=== PATIENT | female | born 1940 | race Caucasian/White ===

== ENCOUNTER 2021-07-04 11:55 | Emergency (ER) | payer MEDICARE, OTHER ==
[~2021-07-04] VITALS: Ht 160 cm; Wt 55.9 kg
[2021-07-04] MEDS ORDERED: METO25TA91 PO (11:58)
[2021-07-04] MEDS ORDERED: ATOR40TA78 PO (11:58)
[2021-07-04] MEDS ORDERED: CLORTHALIDONE (11:58)
[2021-07-04] MEDS ORDERED: SPIR25TA5 PO (11:58)
--- NOTE | 2021-07-04 12:07 | NUR ---
BIB [facility] FROM [facility]. PT MECH GLF IN ROOM AND FELL ONTO RIGHT WRIST. RIGHT WRIST SECURE IN [facility] SPLINT. CMS INTACT. INTELLECTUAL PROPERTY PARALEGAL [facility]: PIV 20 L HAND, 50 FENT, 4 ZOFRAN. PT CONNECTED TO MONITORING. CALL LIGHT IN REACH. AT BEDSIDE. AWAITING ORDERS.
[2021-07-04] MEDS ORDERED: ONDANSETRON 2MG/ML, 2ML ONE (13:08)
[2021-07-04] MEDS ORDERED: MORPHINE SULFATE 4 MG/ML, 1ML ONE (13:09)
[2021-07-04] MEDS ORDERED: ONDANSETRON 2MG/ML, 2ML IVPush ONE (13:30)
[2021-07-04] MEDS ORDERED: MORPHINE SULFATE 4 MG/ML, 1ML IVPush ONE (13:30)
[2021-07-04] MEDS ORDERED: PLEASE ENTER ALLERGIES MC SCH (13:30)
--- NOTE | 2021-07-04 14:09 | NUR ---
PT AT XRAY FOR KNEE.
--- NOTE | 2021-07-04 14:37 | NUR ---
ALL RESULTS ARE BACK AT THIS TIME.
--- NOTE | 2021-07-04 15:47 | NUR ---
CONSENT SIGNED FOR PROCEDURAL SEDATION TO REDUCE RIGHT RADIUS. ROOM SET UP.
[2021-07-04] MEDS ORDERED: PROPOFOL 10 MG/ML, 20ML ONE (16:20)
[2021-07-04] MEDS ORDERED: PROPOFOL 10 MG/ML, 20ML IVPush ONE (16:30)
--- NOTE | 2021-07-04 16:51 | NUR ---
PROCEDURAL SEDATION COMPLETE. SEE PROCEDURAL SEDATION CHECKLIST FOR DETAILS. PT A&OX4. POST REDUCTION XRAY ORDERED.
[2021-07-04 16:58] VITALS: BP 159/51
== END 2021-07-04 18:01 | disposition home or self-care (01) ==
LOC: ED 14:58
DX: S52.351A Displaced comminuted fracture of shaft of radius, right arm, initial encounter for closed fracture (principal); I10 Essential (primary) hypertension; E78.5 Hyperlipidemia, unspecified; Z90.89 Acquired absence of other organs; Z90.710 Acquired absence of both cervix and uterus; W01.0XXA Fall on same level from slipping, tripping and stumbling without subsequent striking against object, initial encounter; Y93.89 Activity, other specified; Y92.89 Other specified places as the place of occurrence of the external cause; Y99.8 Other external cause status
CPT/HCPCS: 25605; 73100; 73110; 73564; 96374; 96375; 99152; 99285; J2270; J2405; J2704